=== PATIENT | male | born 1940 | race Caucasian/White ===

== ENCOUNTER 2018-05-25 09:08 | Day surgery (SDC) | payer MEDICARE ==
--- NOTE | 2018-05-25 09:58 | Anesthesia Consultation ---
Anesthesia Consult and Med Hx Date of service: 05/25/18 - Airway Anesthetic Teeth Evaluation: Poor ROM Head & Neck: Adequate Mental/Hyoid Distance: Adequate Mallampati Class: Class III Intubation Access Assessment: Possibly Difficult - Pulmonary Exam CTA: Yes - Cardiac Exam Cardiac Exam: RRR - Pre-Operative Health Status ASA Pre-Surgery Classification: ASA3 Proposed Anesthetic Plan: MAC - Pulmonary Hx Smoking: No Hx Respiratory Symptoms: No Hx Sleep Apnea: No - Cardiovascular System Hx Hypertension: Yes (last dose antihypertensives 2 days ago) Hx Heart Attack/AMI: No Hx Percutaneous Transluminal Coronary Angioplasty (PTCA): No Hx Pacemaker: Yes Hx Internal Defibrillator: Yes - Central Nervous System CVA: No - Endocrine Hx Renal Disease: No Hx Liver Disease: No Hx Insulin Dependent Diabetes: No Hx Non-Insulin Dependent Diabetes: No Hx Thyroid Disease: No - Other Systems Hx Obesity: No - Additional Comments Anesthesia Medical History Comments: No hx anesthetic complications. Patient has pacer (?AICD) in place since 2008. Per patient, pacer placed because "heart is too weak to pump the blood." Last interrogated in 04/2018 and functioning well. V-paced on telemetry. He has not felt any shocks and is unsure if it is pacer or AICD. Hx facilitated by in-person Nepali interpreter and translator
--- NOTE | 2018-05-25 09:58 | Anesthesia Day of Surgery ---
Anesthesia Day of Surgery - Day of Surgery Patient Examined: Yes Patient H&P Reviewed: Yes Patient is NPO: Yes
[2018-05-25] MEDS ORDERED: NACL 0.9% 1000 ML 1,000 ML IV SCH (10:00)
[2018-05-25] MEDS ORDERED: DIPRIVAN 10 MG/ML IV ONE (10:15)
--- NOTE | 2018-05-25 10:56 | Short Stay Summary ---
Short Stay Documentation Date of service: 05/25/18 Narrative H&P: The patient presents for surveillance colonoscopy. Hx polyps. Last study about 6 years ago. - History Past Medical History: CAD, hypertension, other (pacemaker) Past Surgical History: Other (pacemaker) Social history: no significant social history, no smoking, no alcohol abuse - Allergies and Medications Current Medications: Allergies No Known Allergies Allergy (Verified 05/25/18 09:26) Home Medications Medication Instructions Recorded Confirmed Last Taken Type Atorvastatin 20 mg PO DAILY 05/25/18 05/25/18 05/23/18 History Benazepril HCl 20 mg PO DAILY 05/25/18 05/25/18 05/23/18 History Coreg 20 mg PO DAILY 05/25/18 05/25/18 05/23/18 History Norvasc 5 mg PO DAILY 05/25/18 05/25/18 05/23/18 History Active Medications Sodium Chloride (Nacl 0.9% 1000 Ml) 1,000 mls @ 50 mls/hr IV DIRECT DANTE Last Admin: 05/25/18 10:11 Dose: 50 mls/hr Documented by: - Physical exam General appearance: no acute distress, well-nourished Integumentary: no rash, no growths, no abnormal pigmentation HEENT: Atraumatic, PERRLA, EOMI, Mucous membr. moist/pink Lungs: Clear to auscultation, Normal air movement Breasts: deferred Heart: Regular rate, Normal S1, Normal S2, No murmurs, Murmur Gastrointestinal: normoactive bowel sounds, no tenderness, no distended, no masses, no guarding, no organomegaly Male Genitourinary: deferred Rectal Exam: normal exam-external/orifice, normal rectal tone, no mass Extremities: no ischemia, pulses intact, pulses symmetrical, No edema, normal temperature, normal color, Full ROM Neurological: Normal gait, Normal speech, Strength at 5/5 X4 ext, Normal tone, Sensation intact, Cranial nerves 3-12 NL, Reflexes 2+ - Brief post op/procedure progress note Date of procedure: 05/25/18 Findings: see dictated report Estimated blood loss: none Pathology: list (rectal polyp) Specimen disposition: to lab Condition: stable - Disposition Condition at discharge: Good Disposition: DC- TO HOME OR SELFCARE - Discharge Diagnoses (1) History of colon polyps Status: Acute (2) CAD (coronary artery disease) Status: Acute Short Stay Discharge Plan Activity: other (no driving for 24 hours, may restart plavix in 72 hours) Weight Bearing Status: Full Weight Bearing Diet: regular Follow up with: CHERYL PLAZA MD [Primary Care Provider] - 7 Days
--- NOTE | 2018-05-25 10:58 | Operative Report ---
Operative Report Operative Report: Date of procedure: 05/25/2018 Preprocedure diagnosis: History of colon polyps. Post procedure diagnosis: 6 millimeter pedunculated inflamed-appearing rectal polyp. Mild diverticulosis of the left colon Procedure: Colonoscopy to the cecum with cold snare resection of the rectal polyp Endoscopist: Dr. Vegas Anesthesia: Monitored anesthesia care per anesthesia department Estimated blood loss: 0 Medications: Monitored anesthesia care. See separate report by anesthesia for details. After careful discussion of the nature and purpose of the procedure as well as details of the technique risks benefits and alternatives the patient gave consent. Please see recent history and physical from the office. The patient was placed in the left lateral decubitus position and medicated per anesthesia. A rectal exam was performed sphincter tone was normal there were no masses palpable. The CloudEnduren 570 scope was passed transanally and advanced under continuous direct vision without difficulty to the cecum. The colon was well prepared. The cecum was normal. The ascending colon was normal and on forward and retroflexed views. The transverse colon was normal. There were scattered diverticula in the descending and sigmoid colon. The rectum revealed a 6 mm inflamed appearing polyp in the distal third. The polyp was removed with cold snare resection and retrieved by suction. The rectum was otherwise normal on forward and retroflexed views. The procedure was well-tolerated overall and the patient was observed in recovery. Conclusions: Inflammatory appearing polyp in the distal rectum. Mild left colon diverticulosis. Plan: Repeat colonoscopy in 5 years. Await pathology. May restart Plavix in 3 days. Signed electronically: Contreras Vegas M.D.
[2018-05-25] MEDS ORDERED: WATER FOR IRRIG STERILE IR ONE (11:26)
[2018-05-25 11:45] VITALS: BP 155/84
== END 2018-05-25 09:09 | disposition home or self-care (01) ==
LOC: GIO 09:08
PROVIDERS: ATTEND Internal Medicine Gastroenterology
DX: Z12.11 Encounter for screening for malignant neoplasm of colon (principal); K62.1 Rectal polyp; K57.30 Diverticulosis of large intestine without perforation or abscess without bleeding; I25.10 Atherosclerotic heart disease of native coronary artery without angina pectoris; E78.00 Pure hypercholesterolemia, unspecified; I10 Essential (primary) hypertension; Z98.890 Other specified postprocedural states; Z86.010 Personal history of colon polyps; Z79.899 Other long term (current) drug therapy; Z95.0 Presence of cardiac pacemaker
CPT/HCPCS: 45385; 88305; J2704